=== PATIENT | female | born 1975 | race Caucasian/White ===

== ENCOUNTER → 2016-07-29 | Outpatient (REF) ==
[2005-07-31 16:00] VITALS: PULSE 62; TEMP 98.1
[~2016-07-29] MED LIST: ARMOUR THYROID60 MG PO
== END ==
LOC: ZLAB.WCH 10:41
DX: Z01.89 Encounter for other specified special examinations (principal)

== ENCOUNTER 2016-11-09 21:22 | Emergency (ER) | payer BC ==
[~2016-11-09] VITALS: Ht 165.1 cm; Wt 61.4 kg
[2016-11-09 21:32] VITALS: BP 112/69; TEMP 98.2
[2016-11-09] MEDS ORDERED: ARMOUR THYROID60 MG PO ×3 (21:35→21:36)
[2016-11-09 23:04] VITALS: PULSE 72
== END 2016-11-09 23:04 | disposition home or self-care (01) ==
LOC: COL.ER 21:22
DX: S70.362A Insect bite (nonvenomous), left thigh, initial encounter (principal); W57.XXXA Bitten or stung by nonvenomous insect and other nonvenomous arthropods, initial encounter
CPT/HCPCS: J8540

== ENCOUNTER → 2018-08-23 | Outpatient (REF) ==
[2005-07-31 16:00] VITALS: TEMP 98.1
[2018-08-23 10:00] LABS: THYROID STIMULATING HORMONE < 0.015 uIU/mL (0.465-4.680)
== END ==
LOC: ZLAB.WCH 09:16
PROVIDERS: Nurse Practitioner Primary Care
DX: Z01.89 Encounter for other specified special examinations (principal)